=== PATIENT | female | born 1950 | race Caucasian/White ===

== ENCOUNTER 2018-08-26 06:17 | Inpatient (IN) | payer MEDICARE, OTHER ==
[2018-08-26] MEDS: CEFAZOLIN 2 GM/50 ML (PMX) 50 ML IVPB (06:00)
[2018-08-26] MEDS: LACTATED RINGER'S 1,000 ML IV* (06:00)
[2018-08-26] MEDS ORDERED: LIDOCAINE 2% (SDV) 5 ML INJ (07:00)
[2018-08-26] MEDS ORDERED: SEVOFLURANE 15 MIN (07:00)
[2018-08-26] MEDS ORDERED: MIDAZOLAM 1 MG/ML 2 ML INJ (08:13)
[2018-08-26] MEDS ORDERED: BUPIVACAINE 0.25% (MPF) 30 ML INJ (08:20)
[2018-08-26] MEDS ORDERED: HEPARIN 1000 UNITS/ML 10 ML INJ ×2 (08:21)
[2018-08-26] MEDS: GELATIN SIZE 100 SPONGE (09:04)
[2018-08-26] MEDS: BUPIVACAINE 0.5%/EPI (SDV) 30 ML INJ (09:04)
[2018-08-26] MEDS: CEFAZOLIN 1 GM INJ (09:04)
[2018-08-26] MEDS: THROMBIN 5000 UNIT VIAL (09:04)
[2018-08-26] MEDS ORDERED: hydrALAzine 20 MG INJ (09:18)
[2018-08-26] MEDS ORDERED: THROMBIN 5000 UNIT VIAL ×2 (10:02→11:37)
[2018-08-26] MEDS ORDERED: PHENYLephrine (100 MCG/ML) 10ML SYG (10:50)
[2018-08-26] MEDS ORDERED: GELATIN SIZE 100 SPONGE (10:51)
[2018-08-26] MEDS ORDERED: FENTAnyl 50 MCG/ML VIAL ×2 (17:32→19:36)
[2018-08-26] MEDS ORDERED: CEFAZOLIN 1 GM INJ ×4 (18:15→19:00)
[2018-08-26] MEDS ORDERED: ETOMIDATE 20 MG INJ (19:00)
[2018-08-26] MEDS ORDERED: ROCURONIUM 50 MG INJ (19:00)
[2018-08-26] MEDS ORDERED: PROPOFOL 20 ML (19:00)
[2018-08-26] MEDS ORDERED: ONDANSETRON 4 MG INJ (19:01)
[2018-08-26] MEDS ORDERED: PROCHLORPERAZINE 10 MG TAB PO (19:30)
[2018-08-26] MEDS ORDERED: DIPHENHYDRAMINE 50 MG INJ IV (19:30)
[2018-08-26] MEDS ORDERED: ONDANSETRON 4 MG INJ IV (19:30)
[2018-08-26] MEDS ORDERED: HYDROCODONE/APAP (5/325) TAB PO (19:30)
[2018-08-26] MEDS ORDERED: HYDROmorphONE 1 MG/5 ML IV SYRINGE IV ×3 (19:30)
[2018-08-26] MEDS ORDERED: hydrALAzine 20 MG INJ IV (19:30)
[2018-08-26] MEDS ORDERED: MEPERIDINE 25 MG INJ IV (19:30)
[2018-08-26] MEDS ORDERED: NACL 0.9% 3 ML SYG IV (19:30)
[2018-08-26] MEDS ORDERED: NALOXONE (0.4 MG/ML) INJ IV (19:30)
[2018-08-26] MEDS ORDERED: METOCLOPRAMIDE 10 MG INJ IV (19:30)
[2018-08-26] MEDS ORDERED: MIDAZOLAM 1 MG/ML 2 ML INJ IV (19:30)
[2018-08-26] MEDS: DEXTROSE 5%-0.45% NACL 1,000 ML IV ×2 (20:13→23:27)
[2018-08-26] MEDS: HYDROmorphONE 0.2 MG/ML PCA IV (20:15)
[2018-08-26] MEDS: FENTAnyl 50 MCG/ML VIAL IV (20:20)
[2018-08-26 20:21] LABS: ADD MAN DIFF? NO
[2018-08-26 20:22] LABS: WHITE BLOOD COUNT 11.7 10^3/ul (4.8-10.8)
[2018-08-26 20:22] LABS: BASOPHILS % 0.3 % (0.0-2.0); HEMATOCRIT 37.7 % (37.0-47.0); HEMOGLOBIN 12.5 g/dl (12.0-16.0); LYMPHOCYTES # 1.1 10^3/ul (0.8-2.9); LYMPHOCYTES % 9.6 % (15.0-51.0); MEAN CORPUSCULAR HEMOGLOBIN 29.5 pg (29.0-33.0); MEAN CORPUSCULAR HGB CONC 33.2 g/dl (32.0-37.0); MEAN CORPUSCULAR VOLUME 88.9 fl (82.0-101.0); MEAN PLATELET VOLUME 9.8 fl (7.4-10.4); MONOCYTE # 0.9 10^3/ul (0.3-0.9); MONOCYTES % 7.8 % (0.0-11.0); NEUTROPHIL # 9.5 10^3/ul (1.6-7.5); NEUTROPHILS % 81.9 % (39.0-77.0); PLATELET COUNT 229 10^3/UL (140-415); RED BLOOD COUNT 4.24 10^6/ul (4.20-5.40); RED CELL DISTRIBUTION WIDTH 13.3 % (11.5-14.5)
[2018-08-26 20:39] LABS: ANION GAP 16 (5-13); BLOOD UREA NITROGEN 17 mg/dl (7-20); CALCIUM 8.5 mg/dl (8.4-10.2); CARBON DIOXIDE 23 mmol/L (21-31); CHLORIDE 101 mmol/L (97-110); CREATININE 0.96 mg/dl (0.44-1.00); Estimated GFR 58 mL/min (>60); GLUCOSE 150 mg/dl (70-220); POTASSIUM 4.2 mmol/L (3.5-5.1); SODIUM 140 mmol/L (135-144)
[2018-08-26] MEDS: LABETALOL HCL 20MG INJ IV (22:09)
[2018-08-26] MEDS: KETOROLAC 30 MG INJ IV (23:26)
[2018-08-26] MEDS: CEFAZOLIN 1 GM/50 ML (PMX) 50 ML IVPB (23:29)
[2018-08-26] MEDS ORDERED: HYDROmorphONE 0.2 MG/ML PCA IV (23:30)
[2018-08-27] MEDS: CEFAZOLIN 1 GM/50 ML (PMX) 50 ML IVPB ×3 (05:35→17:32)
[2018-08-27] MEDS: KETOROLAC 30 MG INJ IV (05:35)
[2018-08-27] MEDS: DEXTROSE 5%-0.45% NACL 1,000 ML IV (05:44)
[2018-08-27 06:34] LABS: HEMATOCRIT 35.3 % (37.0-47.0); HEMOGLOBIN 11.5 g/dl (12.0-16.0)
[2018-08-27 07:23] LABS: ANION GAP 10 (5-13); BLOOD UREA NITROGEN 20 mg/dl (7-20); CARBON DIOXIDE 26 mmol/L (21-31); CHLORIDE 103 mmol/L (97-110); CREATININE 1.46 mg/dl (0.44-1.00); Estimated GFR 36 mL/min (>60); GLUCOSE 139 mg/dl (70-220); POTASSIUM 4.5 mmol/L (3.5-5.1); SODIUM 139 mmol/L (135-144)
[2018-08-27] MEDS: HYDROmorphONE 0.2 MG/ML PCA IV ×2 (09:29→10:11)
[2018-08-27] MEDS: DOCUSATE SODIUM 100 MG CAP PO ×2 (09:50→21:00)
[2018-08-27] MEDS: SOD CHLORIDE 0.9% 1,000 ML IV ×2 (10:25→17:32)
[2018-08-27] MEDS: CEPASTAT LOZENGE MT ×3 (11:13→20:55)
[2018-08-27 13:02] LABS: SODIUM,URINE RANDOM < 13 mmol/L (30-90)
[2018-08-27] MEDS ORDERED: HYDROmorphONE 0.5 MG/0.5 ML SYG IV (20:30)
[2018-08-27] MEDS: ACETAMINOPHEN 1000MG/100ML IV 100 ML IVPB (20:44)
[2018-08-27] MEDS: HYDROCODONE/APAP (5/325) TAB PO (20:45)
[2018-08-27] MEDS: GABAPENTIN 300 MG CAP PO (20:46)
[2018-08-27] MEDS: AMITRIPTYLINE 25 MG TAB PO (21:00)
[2018-08-27] MEDS: METHOCARBAMOL 500 MG TAB PO (22:29)
[2018-08-28] MEDS: SOD CHLORIDE 0.9% 1,000 ML IV ×3 (01:15→18:41)
[2018-08-28] MEDS: HYDROCODONE/APAP (5/325) TAB PO (01:15)
[2018-08-28] MEDS: ACETAMINOPHEN 1000MG/100ML IV 100 ML IVPB (05:21)
[2018-08-28] MEDS: LEVOTHYROXINE 150 MCG TAB PO (07:00)
[2018-08-28 08:13] LABS: WHITE BLOOD COUNT 14.1 10^3/ul (4.8-10.8)
[2018-08-28 08:13] LABS: HEMATOCRIT 27.6 % (37.0-47.0); HEMOGLOBIN 9.3 g/dl (12.0-16.0); MEAN CORPUSCULAR HEMOGLOBIN 29.9 pg (29.0-33.0); MEAN CORPUSCULAR HGB CONC 33.7 g/dl (32.0-37.0); MEAN CORPUSCULAR VOLUME 88.7 fl (82.0-101.0); MEAN PLATELET VOLUME 10.8 fl (7.4-10.4); PLATELET COUNT 173 10^3/UL (140-415); RED BLOOD COUNT 3.11 10^6/ul (4.20-5.40); RED CELL DISTRIBUTION WIDTH 13.5 % (11.5-14.5)
[2018-08-28 08:21] LABS: ADD MAN DIFF? YES; POSITIVE DIFF @See below
[2018-08-28] MEDS: GABAPENTIN 300 MG CAP PO ×2 (08:29→20:32)
[2018-08-28] MEDS: DOCUSATE SODIUM 100 MG CAP PO ×2 (08:29→20:32)
[2018-08-28 08:30] LABS: ALANINE AMINOTRANSFERASE 45 IU/L (13-69); ALBUMIN 3.1 g/dl (3.3-4.9); ALBUMIN/GLOBULIN RATIO 1.29; ALKALINE PHOSPHATASE 72 IU/L (42-121); ANION GAP 11 (5-13); ASPARTATE AMINO TRANSFERASE 131 IU/L (15-46); BILIRUBIN,INDIRECT 0.5 mg/dl (0-1.1); BILIRUBIN,TOTAL 0.5 mg/dl (0.2-1.3); BLOOD UREA NITROGEN 19 mg/dl (7-20); CALCIUM 7.3 mg/dl (8.4-10.2); CARBON DIOXIDE 21 mmol/L (21-31); CHLORIDE 97 mmol/L (97-110); CREATININE 1.09 mg/dl (0.44-1.00); Estimated GFR 50 mL/min (>60); GLUCOSE 103 mg/dl (70-220); MAGNESIUM 1.5 mg/dl (1.7-2.5); PHOSPHORUS 3.1 mg/dl (2.5-4.9); POTASSIUM 4.4 mmol/L (3.5-5.1); SODIUM 129 mmol/L (135-144); TOTAL PROTEIN 5.5 g/dl (6.1-8.1)
[2018-08-28] MEDS: PHENOL 1.4% SOLN 180 ML BTL MT (08:33)
[2018-08-28] MEDS: ESTRADIOL 1 MG TAB PO (09:00)
[2018-08-28] MEDS: ONDANSETRON 4 MG INJ IV ×2 (10:22→16:38)
[2018-08-28 10:26] LABS: ANISOCYTOSIS 1+ (0-0); BAND NEUTROPHILS #M 4.3 10^3/ul (0.0-0.6); BAND NEUTROPHILS % (M) 31 % (0-4); BURR CELLS 2+ (0-0); EOSINOPHILS % (M) 1 % (0-7); LYMPHOCYTES #M 1.2 10^3/ul (0.8-2.9); LYMPHOCYTES % (M) 9 % (15-51); METAMYELOCYTES #M 0.1 10^3/ul (0.0-0.0); METAMYELOCYTES %M 1 % (0-0); MONOCYTE #M 0.8 10^3/ul (0.3-0.9); MONOCYTES % (M) 6 % (0-11); MYELOCYTES #M 0.1 10^3/ul (0.0-0.0); MYELOCYTES % (M) 1 % (0-0); PLATELET ESTIMATE NORMAL; POIKILOCYTOSIS 1+ (0-0); SEG NEUT #M 7.8 10^3/ul (1.6-7.5); SEGMENTED NEUTROPHILS (M) % 51 % (39-77); SMUDGE%M 2 % (0-0)
[2018-08-28] MEDS: MAGNESIUM SULFATE 3 GM in DEXTROSE 5% 100 ML IVPB (14:48)
[2018-08-28 15:35] LABS: ADD UMIC YES; UR ASCORBIC ACID NEGATIVE (NEGATIVE); UR BILIRUBIN (Dip) NEGATIVE (NEGATIVE); UR BLOOD (Dip) 2+ mg/dL (NEGATIVE); UR CLARITY CLEAR (CLEAR); UR COLOR STRAW (YELLOW); UR GLUCOSE (Dip) NEGATIVE (NEGATIVE); UR KETONES (Dip) NEGATIVE (NEGATIVE); UR LEUKOCYTE ESTERASE (Dip) NEGATIVE Leu/ul (NEGATIVE); UR NITRITE (Dip) NEGATIVE (NEGATIVE); UR RBC 1 /HPF (0-5); UR SPECIFIC GRAVITY (Dip) 1.006 (1.003-1.030); UR TOTAL PROTEIN (Dip) NEGATIVE (NEGATIVE); UR UROBILINOGEN (Dip) NEGATIVE (NEGATIVE); UR WBC 1 /HPF (0-5)
[2018-08-28] MEDS: AMITRIPTYLINE 25 MG TAB PO (20:34)
[2018-08-29] MEDS: SOD CHLORIDE 0.9% 1,000 ML IV (04:46)
[2018-08-29 05:30] LABS: ADD MAN DIFF? NO
[2018-08-29 05:37] LABS: BASOPHILS % 0.1 % (0.0-2.0); EOSINOPHILS % 0.2 % (0.0-7.0); HEMATOCRIT 25.2 % (37.0-47.0); HEMOGLOBIN 8.3 g/dl (12.0-16.0); LYMPHOCYTES # 0.8 10^3/ul (0.8-2.9); MEAN CORPUSCULAR HEMOGLOBIN 29.6 pg (29.0-33.0); MEAN CORPUSCULAR HGB CONC 32.9 g/dl (32.0-37.0); MONOCYTE # 0.7 10^3/ul (0.3-0.9); MONOCYTES % 7.3 % (0.0-11.0); NEUTROPHIL # 8.5 10^3/ul (1.6-7.5); NEUTROPHILS % 83.6 % (39.0-77.0); PLATELET COUNT 164 10^3/UL (140-415); RED CELL DISTRIBUTION WIDTH 13.9 % (11.5-14.5)
[2018-08-29 05:37] LABS: WHITE BLOOD COUNT 10.1 10^3/ul (4.8-10.8)
[2018-08-29 05:59] LABS: IRON 15 ug/dl (35-150)
[2018-08-29 06:09] LABS: % IRON SATURATION 8 % SAT (22-52); MAGNESIUM 2.3 mg/dl (1.7-2.5); TOTAL IRON BINDING CAPACITY 197 ug/dl (241-421)
[2018-08-29 06:09] LABS: PHOSPHORUS 2.2 mg/dl (2.5-4.9)
[2018-08-29 06:11] LABS: ANION GAP 10 (5-13); BLOOD UREA NITROGEN 15 mg/dl (7-20); CALCIUM 7.7 mg/dl (8.4-10.2); CARBON DIOXIDE 22 mmol/L (21-31); CHLORIDE 101 mmol/L (97-110); CREATININE 0.88 mg/dl (0.44-1.00); Estimated GFR > 60 mL/min (>60); GLUCOSE 108 mg/dl (70-220); SODIUM 133 mmol/L (135-144)
[2018-08-29] MEDS: LEVOTHYROXINE 150 MCG TAB PO (06:13)
[2018-08-29 07:44] LABS: THYROID STIMULATING HORMONE 0.936 MIU/L (0.465-4.680)
[2018-08-29] MEDS: GABAPENTIN 300 MG CAP PO ×2 (09:31→20:20)
[2018-08-29] MEDS: ESTRADIOL 1 MG TAB PO (09:31)
[2018-08-29] MEDS: DOCUSATE SODIUM 100 MG CAP PO ×2 (09:31→20:20)
[2018-08-29] MEDS: ACETAMINOPHEN 325 MG TAB PO ×2 (11:17→15:54)
[2018-08-29 16:22] LABS: ADD MAN DIFF? NO
[2018-08-29 16:24] LABS: BASOPHILS % 0.2 % (0.0-2.0); EOSINOPHILS # 0.1 10^3/ul (0.0-0.5); EOSINOPHILS % 0.8 % (0.0-7.0); HEMATOCRIT 26.3 % (37.0-47.0); HEMOGLOBIN 8.7 g/dl (12.0-16.0); LYMPHOCYTES # 1.2 10^3/ul (0.8-2.9); LYMPHOCYTES % 10.4 % (15.0-51.0); MEAN CORPUSCULAR HEMOGLOBIN 29.9 pg (29.0-33.0); MEAN CORPUSCULAR HGB CONC 33.1 g/dl (32.0-37.0); MEAN CORPUSCULAR VOLUME 90.4 fl (82.0-101.0); MEAN PLATELET VOLUME 9.7 fl (7.4-10.4); MONOCYTE # 1.2 10^3/ul (0.3-0.9); MONOCYTES % 10.7 % (0.0-11.0); NEUTROPHIL # 8.7 10^3/ul (1.6-7.5); NEUTROPHILS % 77.3 % (39.0-77.0); PLATELET COUNT 168 10^3/UL (140-415); RED BLOOD COUNT 2.91 10^6/ul (4.20-5.40); RED CELL DISTRIBUTION WIDTH 13.9 % (11.5-14.5)
[2018-08-29 16:24] LABS: WHITE BLOOD COUNT 11.2 10^3/ul (4.8-10.8)
[2018-08-29 19:02] LABS: SODIUM,URINE RANDOM < 13 mmol/L (30-90)
[2018-08-29] MEDS: AMITRIPTYLINE 25 MG TAB PO (20:20)
[2018-08-29] MEDS: FERROUS FUMARATE (SR) TAB PO (20:20)
[2018-08-30 05:46] LABS: HEMATOCRIT 24.5 % (37.0-47.0); HEMOGLOBIN 8.2 g/dl (12.0-16.0); MEAN CORPUSCULAR HEMOGLOBIN 29.9 pg (29.0-33.0); MEAN CORPUSCULAR HGB CONC 33.5 g/dl (32.0-37.0); MEAN CORPUSCULAR VOLUME 89.4 fl (82.0-101.0); MEAN PLATELET VOLUME 10.8 fl (7.4-10.4); PLATELET COUNT 198 10^3/UL (140-415); RED BLOOD COUNT 2.74 10^6/ul (4.20-5.40); RED CELL DISTRIBUTION WIDTH 14.1 % (11.5-14.5)
[2018-08-30 05:46] LABS: WHITE BLOOD COUNT 9.8 10^3/ul (4.8-10.8)
[2018-08-30] MEDS: LEVOTHYROXINE 150 MCG TAB PO (05:51)
[2018-08-30 05:54] LABS: ADD MAN DIFF? YES; POSITIVE DIFF @See below
[2018-08-30 06:18] LABS: ANION GAP 10 (5-13); BLOOD UREA NITROGEN 13 mg/dl (7-20); CALCIUM 8.1 mg/dl (8.4-10.2); CARBON DIOXIDE 24 mmol/L (21-31); CHLORIDE 102 mmol/L (97-110); CREATININE 0.75 mg/dl (0.44-1.00); Estimated GFR > 60 mL/min (>60); GLUCOSE 104 mg/dl (70-220); MAGNESIUM 2.2 mg/dl (1.7-2.5); PHOSPHORUS 1.8 mg/dl (2.5-4.9); POTASSIUM 3.8 mmol/L (3.5-5.1); SODIUM 136 mmol/L (135-144)
[2018-08-30 07:33] LABS: BAND NEUTROPHILS #M 0.6 10^3/ul (0.0-0.6); BAND NEUTROPHILS % (M) 7 % (0-4); BASOPHILS % (M) 1 % (0-2); EOSINOPHILS % (M) 1 % (0-7); HYPOCHROMASIA 1+ (0-0); LYMPHOCYTES #M 0.7 10^3/ul (0.8-2.9); LYMPHOCYTES % (M) 8 % (15-51); MONOCYTE #M 0.2 10^3/ul (0.3-0.9); MONOCYTES % (M) 3 % (0-11); MYELOCYTES % (M) 1 % (0-0); PLATELET ESTIMATE NORMAL; POLYCHROMASIA 1+ (0-0); SEG NEUT #M 7.8 10^3/ul (1.6-7.5); SEGMENTED NEUTROPHILS (M) % 79 % (39-77); SMUDGE%M 8 % (0-0)
[2018-08-30] MEDS: ESTRADIOL 1 MG TAB PO (09:00)
[2018-08-30] MEDS: FERROUS FUMARATE (SR) TAB PO ×2 (09:00→23:52)
[2018-08-30] MEDS: GABAPENTIN 300 MG CAP PO ×2 (09:00→23:52)
[2018-08-30] MEDS: DOCUSATE SODIUM 100 MG CAP PO ×2 (09:00→23:53)
[2018-08-30] MEDS: HYDROCODONE/APAP (5/325) TAB PO (10:38)
[2018-08-30] MEDS: METOPROLOL (XL) 25 MG TAB PO (11:47)
[2018-08-30] MEDS: ZOLPIDEM 5 MG TAB PO (11:48)
[2018-08-30] MEDS ORDERED: ZOLPIDEM 5 MG TAB PO (21:00)
[2018-08-30] MEDS: AMITRIPTYLINE 25 MG TAB PO (23:52)
[2018-08-31 05:32] LABS: ADD MAN DIFF? NO
[2018-08-31 05:39] LABS: BASOPHILS % 0.4 % (0.0-2.0); EOSINOPHILS # 0.1 10^3/ul (0.0-0.5); HEMATOCRIT 24.5 % (37.0-47.0); HEMOGLOBIN 8.3 g/dl (12.0-16.0); LYMPHOCYTES # 1.2 10^3/ul (0.8-2.9); LYMPHOCYTES % 17.5 % (15.0-51.0); MEAN CORPUSCULAR HEMOGLOBIN 30.3 pg (29.0-33.0); MEAN CORPUSCULAR HGB CONC 33.9 g/dl (32.0-37.0); MEAN CORPUSCULAR VOLUME 89.4 fl (82.0-101.0); MEAN PLATELET VOLUME 10.6 fl (7.4-10.4); MONOCYTES % 14.2 % (0.0-11.0); NEUTROPHIL # 4.4 10^3/ul (1.6-7.5); NEUTROPHILS % 63.3 % (39.0-77.0); PLATELET COUNT 215 10^3/UL (140-415); RED BLOOD COUNT 2.74 10^6/ul (4.20-5.40); RED CELL DISTRIBUTION WIDTH 14.1 % (11.5-14.5)
[2018-08-31 05:39] LABS: WHITE BLOOD COUNT 6.9 10^3/ul (4.8-10.8)
[2018-08-31 06:06] LABS: ANION GAP 10 (5-13); BLOOD UREA NITROGEN 12 mg/dl (7-20); CARBON DIOXIDE 25 mmol/L (21-31); CHLORIDE 99 mmol/L (97-110); CREATININE 0.68 mg/dl (0.44-1.00); Estimated GFR > 60 mL/min (>60); GLUCOSE 97 mg/dl (70-220); POTASSIUM 3.6 mmol/L (3.5-5.1); SODIUM 134 mmol/L (135-144)
[2018-08-31] MEDS: LEVOTHYROXINE 150 MCG TAB PO (07:24)
[2018-08-31] MEDS: ESTRADIOL 1 MG TAB PO (08:38)
[2018-08-31] MEDS: GABAPENTIN 300 MG CAP PO ×2 (08:38→20:45)
[2018-08-31] MEDS: FERROUS FUMARATE (SR) TAB PO ×2 (08:38→20:45)
[2018-08-31] MEDS: DOCUSATE SODIUM 100 MG CAP PO ×2 (08:38→20:45)
[2018-08-31] MEDS: METOPROLOL (XL) 25 MG TAB PO (08:39)
[2018-08-31] MEDS: SODIUM PHOSPHATE 20 MEQ in SOD CHLORIDE 0.9% 250 ML IVPB ×2 (11:31→12:47)
[2018-08-31] MEDS: AL HYDROX/MG HYDROX/SIMETH 30 ML CUP PO (18:06)
[2018-08-31] MEDS: AMITRIPTYLINE 25 MG TAB PO (20:45)
[2018-09-01 05:23] LABS: ABNORMAL IP MESSAGE 1; HEMATOCRIT 23.5 % (37.0-47.0); HEMOGLOBIN 7.9 g/dl (12.0-16.0); MEAN CORPUSCULAR HEMOGLOBIN 29.9 pg (29.0-33.0); MEAN CORPUSCULAR HGB CONC 33.6 g/dl (32.0-37.0); MEAN PLATELET VOLUME 10.4 fl (7.4-10.4); PLATELET COUNT 223 10^3/UL (140-415); RED BLOOD COUNT 2.64 10^6/ul (4.20-5.40); RED CELL DISTRIBUTION WIDTH 13.9 % (11.5-14.5)
[2018-09-01 05:23] LABS: WHITE BLOOD COUNT 5.3 10^3/ul (4.8-10.8)
[2018-09-01 05:45] LABS: ADD MAN DIFF? YES; POSITIVE DIFF @See below
[2018-09-01 06:25] LABS: ANION GAP 6 (5-13); BLOOD UREA NITROGEN 11 mg/dl (7-20); CALCIUM 7.9 mg/dl (8.4-10.2); CARBON DIOXIDE 26 mmol/L (21-31); CHLORIDE 101 mmol/L (97-110); Estimated GFR > 60 mL/min (>60); GLUCOSE 101 mg/dl (70-220); MAGNESIUM 1.8 mg/dl (1.7-2.5); POTASSIUM 3.3 mmol/L (3.5-5.1); SODIUM 133 mmol/L (135-144)
[2018-09-01] MEDS: LEVOTHYROXINE 150 MCG TAB PO (06:26)
[2018-09-01 07:19] LABS: BAND NEUTROPHILS #M 0.2 10^3/ul (0.0-0.6); BAND NEUTROPHILS % (M) 4 % (0-4); BURR CELLS 1+ (0-0); EOSINOPHILS % (M) 4 % (0-7); GIANT THROMBO% (M) 1 % (0-0); HYPOCHROMASIA 1+ (0-0); LYMPHOCYTES #M 1.1 10^3/ul (0.8-2.9); LYMPHOCYTES % (M) 21 % (15-51); METAMYELOCYTES %M 1 % (0-0); MONOCYTE #M 0.2 10^3/ul (0.3-0.9); MONOCYTES % (M) 5 % (0-11); MYELOCYTES #M 0.1 10^3/ul (0.0-0.0); MYELOCYTES % (M) 2 % (0-0); PLATELET ESTIMATE NORMAL; POLYCHROMASIA 1+ (0-0); PROMYELOCYTES #M 0.1 10^3/ul (0-0); PROMYELOCYTES % (M) 2 % (0-0); SEG NEUT #M 3.2 10^3/ul (1.6-7.5); SEGMENTED NEUTROPHILS (M) % 61 % (39-77); SMUDGE%M 2 % (0-0)
[2018-09-01] MEDS: GABAPENTIN 300 MG CAP PO ×2 (09:01→22:17)
[2018-09-01] MEDS: FERROUS FUMARATE (SR) TAB PO ×2 (09:01→22:17)
[2018-09-01] MEDS: DOCUSATE SODIUM 100 MG CAP PO ×2 (09:01→22:18)
[2018-09-01] MEDS: ESTRADIOL 1 MG TAB PO (09:05)
[2018-09-01] MEDS: METOPROLOL (XL) 25 MG TAB PO (09:06)
[2018-09-01] MEDS: POTASSIUM CHLORIDE (SR) 10 MEQ TAB PO ×2 (12:23→22:18)
[2018-09-01] MEDS: SOD CHLORIDE 0.9% 1,000 ML IV (12:34)
[2018-09-01 14:41] LABS: ADD UMIC NO; UR ASCORBIC ACID NEGATIVE (NEGATIVE); UR BILIRUBIN (Dip) NEGATIVE (NEGATIVE); UR BLOOD (Dip) NEGATIVE (NEGATIVE); UR CLARITY CLEAR (CLEAR); UR COLOR YELLOW (YELLOW); UR GLUCOSE (Dip) NEGATIVE (NEGATIVE); UR KETONES (Dip) NEGATIVE (NEGATIVE); UR LEUKOCYTE ESTERASE (Dip) NEGATIVE Leu/ul (NEGATIVE); UR NITRITE (Dip) NEGATIVE (NEGATIVE); UR SPECIFIC GRAVITY (Dip) 1.008 (1.003-1.030); UR TOTAL PROTEIN (Dip) NEGATIVE (NEGATIVE); UR UROBILINOGEN (Dip) NEGATIVE (NEGATIVE)
[2018-09-01] MEDS: ACETAMINOPHEN 325 MG TAB PO (14:47)
[2018-09-01 15:08] LABS: SODIUM,URINE RANDOM 84 mmol/L (30-90)
[2018-09-01] MEDS: AMITRIPTYLINE 25 MG TAB PO (22:18)
[2018-09-01 23:34] LABS: IMMEDIATE SPIN CROSSMATCH 1 2
[2018-09-01] MEDS: ZOLPIDEM 5 MG TAB PO (23:41)
[2018-09-01] MEDS: CEPASTAT LOZENGE MT (23:41)
[2018-09-02 04:49] LABS: ADD MAN DIFF? NO
[2018-09-02 04:53] LABS: BASOPHILS % 0.5 % (0.0-2.0); EOSINOPHILS # 0.2 10^3/ul (0.0-0.5); EOSINOPHILS % 3.2 % (0.0-7.0); HEMATOCRIT 27.6 % (37.0-47.0); HEMOGLOBIN 9.4 g/dl (12.0-16.0); LYMPHOCYTES # 1.3 10^3/ul (0.8-2.9); LYMPHOCYTES % 23.5 % (15.0-51.0); MEAN CORPUSCULAR HEMOGLOBIN 29.4 pg (29.0-33.0); MEAN CORPUSCULAR HGB CONC 34.1 g/dl (32.0-37.0); MEAN CORPUSCULAR VOLUME 86.3 fl (82.0-101.0); MONOCYTE # 0.9 10^3/ul (0.3-0.9); MONOCYTES % 16.1 % (0.0-11.0); NEUTROPHIL # 2.9 10^3/ul (1.6-7.5); NEUTROPHILS % 52.2 % (39.0-77.0); PLATELET COUNT 233 10^3/UL (140-415)
[2018-09-02 04:53] LABS: WHITE BLOOD COUNT 5.5 10^3/ul (4.8-10.8)
[2018-09-02] MEDS: METOPROLOL (XL) 25 MG TAB PO (04:56)
[2018-09-02 05:13] LABS: ANION GAP 9 (5-13); BLOOD UREA NITROGEN 12 mg/dl (7-20); CALCIUM 8.2 mg/dl (8.4-10.2); CARBON DIOXIDE 27 mmol/L (21-31); CHLORIDE 100 mmol/L (97-110); Estimated GFR > 60 mL/min (>60); GLUCOSE 99 mg/dl (70-220); MAGNESIUM 1.8 mg/dl (1.7-2.5); PHOSPHORUS 3.3 mg/dl (2.5-4.9); SODIUM 136 mmol/L (135-144)
[2018-09-02] MEDS: SOD CHLORIDE 0.9% 1,000 ML IV (06:30)
[2018-09-02] MEDS: LEVOTHYROXINE 150 MCG TAB PO (06:48)
[2018-09-02] MEDS ORDERED: METOPROLOL (XL) 25 MG TAB PO (09:00)
[2018-09-02] MEDS: GABAPENTIN 300 MG CAP PO (09:00)
[2018-09-02] MEDS: ESTRADIOL 1 MG TAB PO (09:00)
[2018-09-02] MEDS: DOCUSATE SODIUM 100 MG CAP PO (09:37)
[2018-09-02] MEDS: FERROUS FUMARATE (SR) TAB PO (09:37)
[2018-09-02] MEDS: LACTULOSE 30ML CUP PO (09:41)
[2018-09-02] MEDS ORDERED: NA PHOSPHATE/BIPHOS 133 ML ENEMA PR (12:00)
== END 2018-09-02 15:15 | DRG 454 ==
LOC: REC 06:17 → MS1 08-27 17:09 → REC 17:05 → ICU 19:24
PROC: 0SG10A0 Fusion of 2 or more Lumbar Vertebral Joints with Interbody Fusion Device, Anterior Approach, Anterior Column, Open Approach (ICD-10-PCS; principal; 2018-08-26 08:00)
PROC: 0SG1071 Fusion of 2 or more Lumbar Vertebral Joints with Autologous Tissue Substitute, Posterior Approach, Posterior Column, Open Approach (ICD-10-PCS; 2018-08-26 08:00)
PROC: 0SB20ZZ Excision of Lumbar Vertebral Disc, Open Approach (ICD-10-PCS; 2018-08-26 08:00)
PROC: 0SG30A0 Fusion of Lumbosacral Joint with Interbody Fusion Device, Anterior Approach, Anterior Column, Open Approach (ICD-10-PCS; 2018-08-26 08:00)
PROC: 0SG3071 Fusion of Lumbosacral Joint with Autologous Tissue Substitute, Posterior Approach, Posterior Column, Open Approach (ICD-10-PCS; 2018-08-26 08:00)
PROC: 0SB40ZZ Excision of Lumbosacral Disc, Open Approach (ICD-10-PCS; 2018-08-26 08:00)
PROC: 3E0U0GB Introduction of Recombinant Bone Morphogenetic Protein into Joints, Open Approach (ICD-10-PCS; 2018-08-26 08:00)
PROC: 4A11X4G Monitoring of Peripheral Nervous Electrical Activity, Intraoperative, External Approach (ICD-10-PCS; 2018-08-26 08:00)
PROC: 30233N1 Transfusion of Nonautologous Red Blood Cells into Peripheral Vein, Percutaneous Approach (ICD-10-PCS; 2018-08-26 08:03)
DX: M51.16 Intervertebral disc disorders with radiculopathy, lumbar region (principal); N17.9 Acute kidney failure, unspecified; E87.1 Hypo-osmolality and hyponatremia; K56.7 Ileus, unspecified; M51.17 Intervertebral disc disorders with radiculopathy, lumbosacral region; M43.16 Spondylolisthesis, lumbar region; M48.062 Spinal stenosis, lumbar region with neurogenic claudication; E66.01 Morbid (severe) obesity due to excess calories; E03.9 Hypothyroidism, unspecified; M40.36 Flatback syndrome, lumbar region; J02.9 Acute pharyngitis, unspecified; D50.9 Iron deficiency anemia, unspecified; R41.0 Disorientation, unspecified; R00.0 Tachycardia, unspecified; M48.07 Spinal stenosis, lumbosacral region; R49.0 Dysphonia; Z68.38 Body mass index [BMI] 38.0-38.9, adult; K21.9 Gastro-esophageal reflux disease without esophagitis; J04.0 Acute laryngitis
CPT/HCPCS: 36430; 70450; 71045; 72114; 74018; 80048; 80053; 81001; 81003; 82728; 83540; 83735; 84100; 84300; 84443; 85014; 85018; 85025; 86644; 86850; 86900; 86901; 86920; 87040; 87081; 87086; 93970; 97110; 97116; 97161; 97163; 97530